=== PATIENT | male | born 1990 | race Caucasian/White ===

== ENCOUNTER 2017-01-29 19:05 | Emergency (ER) | payer OTHER ==
[~2017-01-29] VITALS: Ht 175.3 cm; Wt 117.9 kg
[~2017-01-29 19:05] MED LIST: HYDROXYZINE HCL50 M1 PO; MOTRIN 600 MG600 MG PO; NIACIN500 M7 PO; OMEPRAZOLE20 M2 PO
--- NOTE | 2017-01-29 19:19 | ED GENERAL ADULT ---
History of Present Illness General Chief Complaint: ETOH/Drug Related Complaint Stated Complaint: ?OVERDOSE Source: patient, EMS Exam Limitations: no limitations Vital Signs & Intake/Output Vital Signs & Intake/Output Vital Signs Date Time Temp Pulse Resp B/P B/P Pulse O2 O2 Flow FiO2 Mean Ox Delivery Rate 01/29 1918 98 Room Air 01/29 1907 98 18 128/71 95 Room Air Allergies Coded Allergies: NO KNOWN ALLERGIES (02/22/11) Reconcile Medications Hydroxyzine HCl 50 MG TABLET 50 MG PO Q6P PRN ANXIETY Ibuprofen (Motrin 600 MG Tab) 600 MG TABLET 1 TAB PO Q6-PRN PRN PAIN/ INFLAMMATION with food Niacin 500 MG TABLET 500 MG PO WITH MEALS heart heatlh Omeprazole 20 MG CAPSULE.DR 40 MG PO DAILY AC HEARTBURN Triage Nurses Notes Reviewed? yes Onset: Abrupt Duration: minute(s): (FEW) Timing: single episode today Injury Environment: home Severity: moderate, severe Modifying Factors: Improves With: other (NARCAN). HPI: 26-year-old male with history of previous heroin abuse presents by EMS from home for chief complaint of narcotic overdose. He states he used 6 bags of heroin IV throughout the day. Patient had no intention of overdosing. He was given 4 mg of Narcan intranasally in the field. Patient arrives awake alert and oriented. He states that he relapsed 2 weeks ago. He has been clean for approximately year prior to that. Denies any other illicit drug use. Denies any suicidal or homicidal ideation. States that he is not depressed or anxious. Past History Travel History Traveled to [place] past 21 day No Medical History Any Pertinent Medical History? 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 No Review of Systems Review of Systems Constitutional: Denies: chills, fever. EENTM: Reports: no symptoms. Respiratory: Reports: no symptoms. Cardiovascular: Reports: no symptoms. GI: Denies: abdominal pain. Genitourinary: Reports: no symptoms. Musculoskeletal: Reports: no symptoms. Skin: Reports: no symptoms. Neurological/Psychological: Denies: anxiety, depressed, emotional problems. Hematologic/Endocrine: Denies: bruising, bleeding. Immunologic/Allergic: Denies: splenectomy. All Other Systems: Reviewed and Negative Physical Exam Physical Exam General Appearance: well developed/nourished, alert, awake, mild distress Head: atraumatic Eyes: Bilateral: normal appearance, PERRL, EOMI. Ears, Nose, Throat: normal pharynx, hearing grossly normal Neck: normal inspection, supple, full range of motion Respiratory: normal breath sounds, chest non-tender, no respiratory distress Cardiovascular: regular rate/rhythm Peripheral Pulses: 2+ radial (R), 2+ radial (L) Gastrointestinal: normal bowel sounds, soft, non-tender Extremities: normal inspection, normal capillary refill, normal range of motion, no edema Neurologic/Psych: awake, alert, normal gait Skin: intact, normal color, cyanosis Core Measures ACS in differential dx? No CVA/TIA Diagnosis: No Severe Sepsis Present: No Septic Shock Present: No Progress Differential Diagnoses I considered the following diagnoses in my evaluation of the patient: [HEROIN ABUSE, POLYSUBSTANCE ABUSE, DEPRESSION, ANXIETY] Plan of Care: Orders Procedure Date/time Status URINE DRUGS OF ABUSE 01/29 1931 Active PATIETN AWAKE, ALERT, ORIENTED. NS INFUSING FROM FIELD. WILL CONTINUE TO MONITOR THE PATIENT. UTOX ORDERED. 2109 PATIENT STABLE FOR DISCHARGE HOME. NO SI/HI. DOES NOT WANT TO SPEAK TO CRISIS FOR OUTPATIENT SERVICES. I WILL PROVIDE HIM WITH A LIST OF DETOX FACILITIES. (KAITLYNN QUEEN,YUDITH) Initial ED EKG: none Departure Departure Time of Disposition: 2046 Disposition: HOME OR SELF CARE Condition: Stable Clinical Impression Primary Impression: Heroin overdose Referrals: PREMA QUEEN,JOHN Carpenter (PCP/Family) Additional Instructions: FOLLOW UP WITH THE LIST OF OUTPATIENT DETOX FACILITIES. Departure Forms: Customer Survey General Discharge Information Critical Care Note Critical Care Note Critical Care Time: non-applicable
[2017-01-29 20:51] VITALS: BP 123/61
== END 2017-01-29 21:14 ==
LOC: ERH 19:05
DX: T40.601A Poisoning by unspecified narcotics, accidental (unintentional), initial encounter (principal)
CPT/HCPCS: 80307

== ENCOUNTER 2017-02-21 10:46 | Emergency (ER) | payer OTHER ==
[~2017-02-21] VITALS: Ht 177.8 cm; Wt 117.9 kg
--- NOTE | 2017-02-21 11:17 | ED GI/GU/ABDOMINAL COMPLAINT ---
History of Present Illness General Chief Complaint: Abdominal Pain/Flank Pain Stated Complaint: ABD PAIN VOMITING NEEDS NOTE FOR WORK Source: patient Exam Limitations: no limitations Vital Signs & Intake/Output Vital Signs & Intake/Output Vital Signs Date Time Temp Pulse Resp B/P B/P Pulse O2 O2 Flow FiO2 Mean Ox Delivery Rate 02/21 1318 96.6 85 18 127/64 97 Room Air 02/21 1055 96.7 102 20 122/86 98 Room Air Allergies Coded Allergies: NO KNOWN ALLERGIES (02/22/11) Reconcile Medications Buprenorphine HCl/Naloxone HCl (Suboxone 8 MG-2 MG Sl Film) 8 MG-2 MG FILM 1 STR SL DAILY WITHDRAWAL (Reported) Hydroxyzine HCl 50 MG TABLET 50 MG PO Q6P PRN ANXIETY Ondansetron (Zofran Odt) 4 MG TAB.RAPDIS 1 TAB SL TID NAUSEA Triage Note: PT TO ED C/O ABD PAIN SINCE LAST NIGHT. C/O N/V/D. STATES HE WORKS IN A [employer] "SO IF IT'S A VIRUS I NEED TO KNOW WHAT IT IS". Triage Nurses Notes Reviewed? yes HPI: 26 yo M presenting with N/V/D, Abdominal pain. Nausea with 1 episode of nonbloody nonbilious emesis this morning. Diarrhea with 3-4 episodes of loose, nonbloody, watery stools since last night. Associated intermittent crampy upper abdominal pain, moderate intensity, not postprandial. Denies fevers, chills, chest pain, shortness of breath, urinary symptoms, testicular symptoms, penile symptoms, or focal neurologic symptoms. No sick contacts, no recent travel. (LETICIA QUEEN,CHARISSA) Past History Travel History Traveled to [place] past 21 day No Medical History Any Pertinent Medical History? 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 Yes (CHARISSA KELLY MD) Review of Systems Review of Systems Constitutional: Reports: no symptoms. EENTM: Reports: no symptoms. Respiratory: Reports: no symptoms. Cardiovascular: Reports: no symptoms. GI: Reports: abdominal pain, diarrhea, nausea, vomiting. Genitourinary: Reports: no symptoms. Musculoskeletal: Reports: no symptoms. Skin: Reports: no symptoms. Neurological/Psychological: Reports: no symptoms. Hematologic/Endocrine: Reports: no symptoms. Immunologic/Allergic: Reports: no symptoms. All Other Systems: Reviewed and Negative (CHARISSA KELLY MD) Physical Exam Physical Exam General Appearance: well developed/nourished, no apparent distress, alert, awake Head: normal appearance Ears, Nose, Throat, Mouth: moist mucous membrane Neck: normal inspection, supple, full range of motion Respiratory: normal breath sounds, no respiratory distress Cardiovascular: normal peripheral pulses, tachycardia Gastrointestinal: normal bowel sounds, soft, tenderness Comments: Abdomen: Moderate tenderness palpation in epigastrium/RUQ/LUQ, negative White sign Core Measures ACS in differential dx? No Severe Sepsis Present: No Septic Shock Present: No (LETICIA QUEEN,CHARISSA) Progress Differential Diagnosis: appendicitis, biliary colic, cholecystitis, gastritis, pancreatitis, UTI/pyelo Plan of Care: Orders Procedure Date/time Status LIPASE 02/21 1135 Complete COMPREHENSIVE METABOLIC PANEL 02/21 1135 Complete CBC WITHOUT DIFFERENTIAL 02/21 1135 Complete Current Medications Sig/Mey Start time Last Medication Dose Stop Time Status Admin Morphine Sulfate 6 MG ONCE ONE 02/21 1145 CAN (Morphine) 02/21 1146 Laboratory Tests 02/21/17 1200: Anion Gap 12, Estimated GFR > 60, BUN/Creatinine Ratio 11.1, Glucose 90, Calcium 9.3, Total Bilirubin 0.5, AST 22, ALT 30, Alkaline Phosphatase 59, Total Protein 7.0, Albumin 4.1, Globulin 2.9, Albumin/Globulin Ratio 1.4, Lipase 52, CBC w Diff NO MAN DIFF REQ, RBC 4.99, MCV 92.8, MCH 31.8 H, RDW 13.3, MPV 8.4, Gran % 78.6 H, Lymphocytes % 12.5 L, Monocytes % 6.9, Eosinophils % 1.8, Basophils % 0.2, Absolute Granulocytes 5.6, Absolute Lymphocytes 0.9 L, Absolute Monocytes 0.5, Absolute Eosinophils 0.1, Absolute Basophils 0, PUBS MCHC 34.3 Physician MDM: 26 yo M presenting with N/V/D, AP. Tachycardic in low 100s, otherwise VSS, abdominal exam as above, non-peritoneal. Patient given 1 L normal saline, Zofran, morphine with complete resolution of pain and nausea. CMP, CBC, lipase unremarkable. Reexamination patient resting comfortably, abdominal pain resolved, repeat abdominal exam benign. Tympanic control of nausea, vomiting, diarrhea discussed the patient, given Rx for Zofran, encouraged to drink plenty of fluids and follow up with PMD in the next 2-3 days. Given return precautions for worsening abdominal pain, fevers, or signs of appendicitis, Discharged. (LETICIA QUEEN,CHARISSA) Initial ED EKG: none (LETICIA QUEEN,CHARISSA) Departure Departure Disposition: HOME OR SELF CARE Condition: Stable Clinical Impression Primary Impression: Nausea & vomiting Secondary Impressions: Diarrhea Referrals: PATIENT HAS NO PRIMARY CARE DR (PCP/Family) Additional Instructions: Take ibuprofen or tylenol for abdominal pain. Take zofran for nausea. Drink plenty of fluids. Follow up with your primary care physician in the next 2-3 days. Return to the ED for any new, worsening, or concerning symptoms. Departure Forms: Customer Survey General Discharge Information Prescriptions: Current Visit Scripts Ondansetron (Zofran Odt) 1 TAB SL TID #20 TAB (LETICIA QUEEN,CHARISSA) PA/PIN PUSHER Co-Sign Statement Statement: ED Attending supervision documentation- [] I saw and evaluated the patient. I have also reviewed all the pertinent lab results and diagnostic results. I agree with the findings and the plan of care as documented in the PA's/PIN PUSHER's documentation. [X] I have reviewed the ED Record and agree with the PA's/PIN PUSHER's documentation. [] Additions or exceptions (if any) to the PAs/PIN PUSHER's note and plan are summarized below: [] (CHRIS QUEEN,FERNIE Damon)
[2017-02-21] MEDS ORDERED: VYVANSE60 M1 PO (11:27)
[2017-02-21 12:10] LABS: ABSOLUTE BASOPHIL COUNT 0 /CUMM (0.0-0.2); ABSOLUTE EOSINOPHIL COUNT 0.1 /CUMM (0.0-0.7); ABSOLUTE GRANULOCYTE CT 5.6 /CUMM (1.4-6.5); ABSOLUTE LYMPH COUNT 0.9 /CUMM (1.2-3.4); ABSOLUTE MONOCYTE COUNT 0.5 /CUMM (0.10-0.60); BASOPHIL % 0.2 % (0.0-2.0); EOSINOPHIL % 1.8 % (0-5); GRANULOCYTE % 78.6 % (42.2-75.2); HEMATOCRIT 46.3 % (42-52); MEAN CORPUSCULAR HGB 31.8 PG (27.0-31.0); MEAN CORPUSCULAR HGB CONC 34.3 G/DL (33.0-37.0); MEAN CORPUSCULAR VOLUME 92.8 FL (80.0-94.0); MEAN PLATELET VOLUME 8.4 FL (7.4-10.4); PLATELET COUNT 179 /CUMM (130-400); RBC DISTRIBUTION WIDTH 13.3 % (11.5-14.5); RED BLOOD CELL CT 4.99 /CUMM (4.70-6.10); WHITE BLOOD CELL COUNT 7.1 /CUMM (4.8-10.8)
[2017-02-21] MEDS ORDERED: SUBOXONE 8 MG-1 EACH SL (12:20)
[2017-02-21] MEDS ORDERED: ZOFRAN ODT4 M1 SL (13:14)
[2017-02-21 13:18] VITALS: BP 127/64
== END 2017-02-21 13:26 ==
LOC: ERH 10:46
PROVIDERS: Student in an Organized Health Care Education/Training Program
DX: R11.2 Nausea with vomiting, unspecified (principal); R19.7 Diarrhea, unspecified
CPT/HCPCS: 96361; 96374

== ENCOUNTER 2017-03-20 03:03 | Inpatient (IN) | payer OTHER ==
[~2017-03-20] VITALS: Ht 177.8 cm; Wt 117.9 kg
[~2017-03-20 03:03] MED LIST changes: +SUBOXONE 8 MG-1 EACH SL; +VYVANSE60 M1 PO; +ZOFRAN ODT4 M1 SL
--- NOTE | 2017-03-20 03:33 | ED AMS/SEIZURE/WEAK/DIZZY ---
See Addendum History of Present Illness General Chief Complaint: ETOH/Drug Related Complaint Stated Complaint: BIBA UNRESPONSIVE S/P OVERDOSE Source: patient Exam Limitations: no limitations Vital Signs & Intake/Output Vital Signs & Intake/Output Vital Signs Date Time Temp Pulse Resp B/P B/P Pulse O2 O2 Flow FiO2 Mean Ox Delivery Rate 03/20 1022 97.1 76 20 123/66 98 Nasal 2.0L Cannula 03/20 0909 96.5 83 16 114/62 86 Room Air Room Air 03/20 0721 97.5 78 20 106/58 100 Nasal 2.0L Cannula 03/20 0628 96.0 75 20 112/79 98 Nasal 2.0L Cannula 03/20 0320 92 Nasal 2.0L Cannula 03/20 0316 102 18 130/76 90 Room Air Allergies Coded Allergies: NO KNOWN ALLERGIES (02/22/11) Reconcile Medications Buprenorphine HCl/Naloxone HCl (Suboxone 8 MG-2 MG Sl Film) 8 MG-2 MG FILM 1 STR SL DAILY WITHDRAWAL (Reported) Hydroxyzine HCl 50 MG TABLET 50 MG PO Q6P PRN ANXIETY Naloxone HCl (Narcan) 4 MG/ACTUATION SPRAY 1 SPRAY IN X1 PRN OVERDOSE Ondansetron (Zofran Odt) 4 MG TAB.RAPDIS 1 TAB SL TID NAUSEA Triage Note: TRIAGE: JUDITH FROM HOME S/P HEROIN OVERDOSE, FOUND UNRESPONSIVE/ APNEC. PATIENT MEDICATED W/ 2MG IN NARCAN AND 0.4MG NARCAN IV IN FIELD W/ RELIEF. REGULAR RESPIRATIONS NOTED ON ARRIVAL, DROWSY THOUGH ALERT. PATIENT REPORTS USING 4 BAGS HEROIN IV, "TRYING SO HARD TO GET CLEAN." MD EVALUATING PATIENT ON ARRIVAL. Triage Nurses Notes Reviewed? yes Onset: Abrupt Duration: minute(s): Timing: single episode today Injury Environment: home Severity: moderate, severe Modifying Factors: Improves With: medication. Associated Symptoms: somnolence, hypopnea HPI: 26-year-old gentleman presents via ambulance after suspected drug overdose. Per the medics, they were called to his home by his girlfriend. He was found be in his room with agonal respirations and minimal responsiveness. He received points for intranasal Narcan followed by 2 mg of Narcan IM. He revived immediately. Upon arrival, he states that he injected between 4 and 6 bags of heroin prior to becoming unconscious. He denies suicidality, homicidality, hallucinations. He states that he is trying to, "get clean." He is otherwise well. (SUDHEER QUEEN,EVITA Riojas) Past History Travel History Traveled to [place] past 21 day No Medical History Any Pertinent Medical History? 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 No (EVITA ROSENTHAL MD) Review of Systems Review of Systems Constitutional: Reports: no symptoms. EENTM: Reports: no symptoms. Respiratory: Reports: no symptoms. Cardiovascular: Reports: no symptoms. GI: Reports: no symptoms. Genitourinary: Reports: no symptoms. Musculoskeletal: Reports: no symptoms. Skin: Reports: no symptoms. Neurological/Psychological: Reports: no symptoms. Hematologic/Endocrine: Reports: no symptoms. Immunologic/Allergic: Reports: no symptoms. All Other Systems: Reviewed and Negative (EVITA ROSENTHAL MD) Physical Exam Physical Exam General Appearance: well developed/nourished, mild distress Head: atraumatic, normal appearance Eyes: Bilateral: normal appearance, PERRL, EOMI. Ears, Nose, Throat: normal pharynx, normal ENT inspection Neck: normal inspection, supple, full range of motion Respiratory: normal breath sounds, chest non-tender, no respiratory distress, quiet respiration, lungs clear Cardiovascular: regular rate/rhythm Gastrointestinal: normal bowel sounds, soft, non-tender, no organomegaly Back: normal inspection, normal range of motion Extremities: normal range of motion Neurologic/Psych: no motor/sensory deficits, awake, alert, oriented x 3 Skin: intact, normal color, warm/dry Core Measures ACS in differential dx? No CVA/TIA Diagnosis: No Severe Sepsis Present: No Septic Shock Present: No (EVITA ROSENTHAL MD) Progress Differential Diagnosis: alcohol intoxication, dehydration, drug intoxication, hypoglycemia, drug overdose vs other. Plan of Care: Orders Procedure Date/time Status Regular Diet 03/20 B Active AEROSOL (GEN) 03/20 831 Complete URINE DRUG SCREEN FOR ER ONLY 03/20 333 Complete TROPONIN LEVEL 03/20 333 Complete ETHANOL 03/20 333 Complete COMPREHENSIVE METABOLIC PANEL 03/20 333 Complete CBC WITHOUT DIFFERENTIAL 03/20 333 Complete EKG 03/20 333 Active Laboratory Tests 03/20/17 0745: Urine Opiates Screen > 4000.00 H, Methadone Screen < 40, Barbiturate Screen < 60, Ur Phencyclidine Scrn < 6.00, Amphetamines Screen 193, U Benzodiazepines Scrn < 85, Urine Cocaine Screen < 50, Urine Cannabis Screen < 5.00 03/20/17 0340: Anion Gap 14, Estimated GFR > 60, BUN/Creatinine Ratio 21.3, Glucose 164 H, Calcium 9.2, Total Bilirubin 0.4, AST 32, ALT 44, Alkaline Phosphatase 51, Troponin I < 0.01, Total Protein 6.8, Albumin 4.0, Globulin 2.8, Albumin/ Globulin Ratio 1.4, CBC w Diff NO MAN DIFF REQ, RBC 4.26 L, MCV 92.8, MCH 31.5 H, RDW 13.1, MPV 8.3, Gran % 81.3 H, Lymphocytes % 11.1 L, Monocytes % 5.0, Eosinophils % 2.3, Basophils % 0.3, Absolute Granulocytes 10.3 H, Absolute Lymphocytes 1.4, Absolute Monocytes 0.6, Absolute Eosinophils 0.3, Absolute Basophils 0, PUBS MCHC 33.9, Serum Alcohol < 10.0 Initial ED EKG: normal axis, normal intervals, normal p-waves, normal QRS complex, normal sinus rhythm Hand-Off Endorsed To: POPPY WASHINGTON DO Endorsed Time: 0700 Pending: labs, other (sobriety) (SUDHEER QUEEN,EVITA Riojas) Departure Departure Disposition: STILL A PATIENT Condition: Stable Clinical Impression Primary Impression: Heroin overdose Referrals: PATIENT HAS NO PRIMARY CARE DR (PCP/Family) Departure Forms: Customer Survey General Discharge Information Prescriptions: Current Visit Scripts Naloxone HCl (Narcan) 1 SPRAY IN X1 PRN OVERDOSE #2 KIT Ref 1 Comments comfortable in ED... awaiting urine drug screen and sobriety. (SUDHEER QUEEN,EVITA Riojas) Departure Comments 03/20/17 11:15 am The patient was signed out to me by Dr. Rosenthal. He is pending reevaluation. (PADMINI NAVARRO,POPPY Boss)
[2017-03-20] MEDS ORDERED: NARCAN4 MG IN (03:38)
[2017-03-20 03:56] LABS: ABSOLUTE BASOPHIL COUNT 0 /CUMM (0.0-0.2); ABSOLUTE EOSINOPHIL COUNT 0.3 /CUMM (0.0-0.7); ABSOLUTE GRANULOCYTE CT 10.3 /CUMM (1.4-6.5); ABSOLUTE LYMPH COUNT 1.4 /CUMM (1.2-3.4); ABSOLUTE MONOCYTE COUNT 0.6 /CUMM (0.10-0.60); BASOPHIL % 0.3 % (0.0-2.0); EOSINOPHIL % 2.3 % (0-5); GRANULOCYTE % 81.3 % (42.2-75.2); HEMATOCRIT 39.6 % (42-52); MEAN CORPUSCULAR HGB 31.5 PG (27.0-31.0); MEAN CORPUSCULAR HGB CONC 33.9 G/DL (33.0-37.0); MEAN CORPUSCULAR VOLUME 92.8 FL (80.0-94.0); MEAN PLATELET VOLUME 8.3 FL (7.4-10.4); PLATELET COUNT 250 /CUMM (130-400); RBC DISTRIBUTION WIDTH 13.1 % (11.5-14.5); RED BLOOD CELL CT 4.26 /CUMM (4.70-6.10); WHITE BLOOD CELL COUNT 12.7 /CUMM (4.8-10.8)
--- NOTE | 2017-03-20 05:58 | RADIOLOGY REPORT ---
EXAMINATION: XR PORTABLE CHEST CLINICAL INFORMATION: Hypoxia. COMPARISON: 06/14/2016 TECHNIQUE: Portable frontal view of the chest was obtained. FINDINGS: Cardiac leads overlie the chest. The lungs are well expanded. There is no focal consolidation, edema, or effusion. No pneumothorax. The cardiomediastinal silhouette is within normal limits. No acute osseous abnormality. IMPRESSION: No acute pulmonary findings.
--- NOTE | 2017-03-20 13:28 | ED PSYCHIATRIST/APRN CONSULT ---
Psychiatrist/LINING STUFFER ED Consult Assessment and Plan: 26-year-old single male brought in unresponsive status post opiate overdose. Capacity eval requested by Dr. Hamm patient healthcare decision- making to leave AMA with current respiratory compromise and risk for additional compromise. Of note patient agrees to stay for respiratory monitoring prior to exam. Subjective: "If I leave I could ." Objective: Mental Status Exam Presentation/Appearance: Cooperative with evaluation. Hospital gar. Orientation: x4 Sensorium: Awake and alert Eye contact: Appropriate Affect: Somewhat blunted Mood: Euthymic Thought Content: - Denies SI/HI, AH/VH, PI. States and also believes they will not kill themselves. Thought Process: Linear Associations: Appropriate Speech: Normal tone and rate Judgment: Fair Insight: Fair Cognition: Memory: Grossly intact Attention/Concentration: Grossly intact Fund of Knowledge: Adequate MMSE: Patient's scores 29 out of 30 which indicates no cognitive impairment at this time Capacity assessment Patient demonstrates an ability to communicate a choice, expressing the wish to stay in hospital for respiratory monitoring. He displays the ability to understand the relevant information, appreciate the situation and it's consequences, and reason about treatment options. Assessment: This patient's currently satisfies capacity and his cognition is intact as shown in Mini-Mental status exam. Is not currently threat to self or others but may be at higher risk for relapse. Plan: - Patient does currently agree to stay and has capacity to make that decision. If patient mental status appears to be altered whether due to hypoxia or otherwise it may be prudent to reevaluate capacity which any provider can do - Please see crisis eval for full history, risk assessment and psychiatric exam - It patient is to be admitted please initiate social work referral for substance abuse disposition planning otherwise it may be prudent to reevaluate capacity which any provider can do - Please see crisis eval for full history, risk assessment and psychiatric exam - It patient is to be admitted please initiate social work referral for substance abuse disposition planning
--- NOTE | 2017-03-20 13:35 | CT SCAN REPORT ---
EXAMINATION: CT ANGIOGRAM OF THE CHEST WITH AND WITHOUT CONTRAST (CT PULMONARY ANGIOGRAM FOR PE) CLINICAL INFORMATION: Hypoxia. COMPARISON: None TECHNIQUE: Prior to contrast administration, noncontrast localization images were obtained. Subsequently, multidetector volumetric imaging was performed from the thoracic inlet to below the diaphragms following the administration of 95 mL Omnipaque 350 intravenous contrast. No contrast reaction reported. Sagittal, coronal, and MIP oblique sagittal reformatted images were obtained on the CT workstation, uploaded to PACS, and reviewed. Total exam dose-length product 517 mGy-cm. FINDINGS: QUALITY OF STUDY/CONTRAST BOLUS: Satisfactory PULMONARY ARTERIES: Pulmonary arterial tree is well-opacified without evidence of filling defects to suggest pulmonary emboli. THORACIC AORTA: Unremarkable. No aneurysm or dissection. No evidence of a penetrating ulcer or atherosclerotic changes. LUNG: There is fairly diffuse bilateral lower lobe, under 1 cm indistinct centrilobular groundglass densities, indeterminate in etiology, likely an infectious or inflammatory, possibly hypersensitive. The findings may represent early findings of aspiration or hypersensitivity. Followup and pulmonary consultation should be considered. No consolidation is seen. No suspicious appearing pulmonary nodules to suggest a primary malignancy or metastatic disease, although this diagnosis is not completely included, given the appearance in the lower lobes. PLEURA: No pleural effusion or pneumothorax. MEDIASTINUM: Unremarkable. CHEST WALL/AXILLA: Multiple small axillary nodes without pathologically enlarged nodes. No suspicious appearing chest wall masses. OSSEOUS STRUCTURES: Unremarkable. UPPER ABDOMEN: Unremarkable. IMPRESSION: 1. No evidence of pulmonary embolism. 2. Indeterminate subcentimeter groundglass opacities, most notably in the lower lobes, will need followup along with clinical correlation, as noted above. VTE: Negative exam for pulmonary embolism.
--- NOTE | 2017-03-20 14:07 | ED PSYCH CRISIS CONSULTATION ---
Crisis Consult Basic Assessment Date of Consult: 03/20/17 Responsible Person/Accompanied By: Self Insurance Authorization: Insurance #1: Insurance name: [employer] Phone number: Policy number: [id number] Group number: [id number] Authorization number: ED Provider: Patient's ED Provider: EVITA WILLARD MD Primary Care Physician: Patient's PCP: PATIENT HAS NO PRIMARY CARE DR PCP's Phone Number: Current Psychiatrist: None Chief Complaint: ETOH/Drug Related Complaint Patient's Quote: I really want to get clean Present Illness: 26 M BIBA 03/20/17 at 0309 after being found unresponsive at home 2/2 heroin OD. The patient responded to Narcan in the field. He has had 3 previous overdoses, accidental in nature. We were asked to see him because he is wanting to leave the hospital, despite ongoing hypoxia. Dr. Hamm, ED physician, fears that if the patient leaves AMA, he is at extreme risk of developing ARDS, and subsequently dying. I saw the patient with Beulah Rojas APRN, from psychiatry consult service. Please see his note regarding capacity evaluation for making the decision to leave the hospital. I did hear the patient verbalized understanding of the risks of leaving before treatment is finished, as well as the benefits of staying in the hospital. He is now agreeing to stay in the hospital for further evaluation, and will be admitted medically. 03/20/17 @ 1138: 110/56, 82HR, 98.0, 20RR, 87% RA. During our interview, SpO2 was noted to fluctuate between 73% and 91%; the patient was not in any respiratory distress. WBC 12.7, potassium 3.1, UTox showed opiates/morphine > 4000. MSE: Alert, but occasional periods of sleepiness, he is oriented and cooperative. Denies AH; denies VH; he presents no adilson delusions. He denies SI/ HI, and denies any history of suicide attempts, although he admits that he has had accidental ods in the past. The patient is agreeing to stay in the hospital, and will be admitted to medicine. The case was discussed with Dr. Syed, covering psychiatrist, who agrees with the plan, and suggests that psychiatry consult service provide offers of outpatient services, such as IOP. The patient reports he will be able to attend an IOP in the late afternoon. He would like to get on a Suboxone program, and also be treated for his anxiety. The patient is currently taking Vyvanse [address] Sorensen for ADHD. Collateral: The patient's father, Jem, was contacted after the interview by Jayde Richards LCSW, who reports that this overdose was a suicide attempt, which the patient had denied. Beulah Adame APRN, Dr. Syed, Dr. Hamm made aware of this new information. Dr. Hamm will order a 1:1 sitter. Please see the collateral note. Patient's Address: [address] [place] [address] Other Phone Number: Who Do You Live With? Family Family/Informants Interviewed: Jem, father, called. Allergies - Coded Allergies: NO KNOWN ALLERGIES (02/22/11) Current Medications - Scheduled Medications Buprenorphine HCl/Naloxone HCl (Suboxone 8 MG-2 MG Sl Film) 8 MG-2 MG FILM 1 STR SL DAILY WITHDRAWAL (Reported) Entered as Reported by KATRINA RIDDLE on 02/21/17 1220 Ondansetron (Zofran Odt) 4 MG TAB.RAPDIS 1 TAB SL TID NAUSEA #20 TAB Prescribed by CHARISSA KELLY MD on 02/21/17 Scheduled PRN Medications Hydroxyzine HCl 50 MG TABLET 50 MG PO Q6P PRN ANXIETY 28 Days Prescribed by KWASI TRENT on 06/19/16 Naloxone HCl (Narcan) 4 MG/ACTUATION SPRAY 1 SPRAY IN X1 PRN OVERDOSE #2 KIT Prescribed by SUDHEER QUEEN,SALINAS on 03/20/17 Laboratory Results: Laboratory Tests 03/20/17 0745: Urine Opiates Screen > 4000.00 H, Methadone Screen < 40, Barbiturate Screen < 60, Ur Phencyclidine Scrn < 6.00, Amphetamines Screen 193, U Benzodiazepines Scrn < 85, Urine Cocaine Screen < 50, Urine Cannabis Screen < 5.00 03/20/17 0340: Anion Gap 14, Estimated GFR > 60, BUN/Creatinine Ratio 21.3, Glucose 164 H, Calcium 9.2, Total Bilirubin 0.4, AST 32, ALT 44, Alkaline Phosphatase 51, Troponin I < 0.01, Total Protein 6.8, Albumin 4.0, Globulin 2.8, Albumin/ Globulin Ratio 1.4, CBC w Diff NO MAN DIFF REQ, RBC 4.26 L, MCV 92.8, MCH 31.5 H, RDW 13.1, MPV 8.3, Gran % 81.3 H, Lymphocytes % 11.1 L, Monocytes % 5.0, Eosinophils % 2.3, Basophils % 0.3, Absolute Granulocytes 10.3 H, Absolute Lymphocytes 1.4, Absolute Monocytes 0.6, Absolute Eosinophils 0.3, Absolute Basophils 0, PUBS MCHC 33.9, Serum Alcohol < 10.0 Past History Past Medical History Neurological: NONE EENT: NONE Cardiovascular: NONE Respiratory: NONE Gastrointestinal: NONE Hepatic: NONE Renal: NONE Musculoskeletal: chronic back pain, chronic skin rash Psychiatric: anxiety, HEROIN ABUSE Endocrine: NONE Blood Disorders: NONE Cancer(s): NONE M[employer] 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 Sorensen Reason for Treatment ADHD, opiate use disorder Dates of Treatment Currently in treatment Response to Treatment Unknown Diagnosis by History: Unspecified Depressive Disorder Substance Use/Abuse History Drug Use/Abuse Substances Used/Abused Yes Substance Used/Abused Heroin First Use Not assessed Last Used [employer] How much used/taken 4 bags How often daily Route of use Injected Substance Abuse Treatment Substance Abuse Treatment Past Substance Abuse [place] No (Unknown) Current Mental Status Mental Status Orientation: Person, Place, Situation Affect: Anxious, Depressed Speech: Soft Neuro-vegetative: Anhedonia, Energy Increased, Sleep Disturbance Appearance Appearance- Dress/Hygiene: Hospital garb Behaviors Thought Process: Logical/Rational, Minimizes risk of self-harm Thought Content: WNL Memory: WNL Insight: Poor SI/HI Risk Assessment Past Suicidal Ideation/Attempts No (Denies) Current Suicidal Ideation/Att No (Denies) Past Homicidal Ideation/Att: No Current Homicidal Ideation/Attempts No Danger To: Self Gravely Disabled: Lack of Insight, Poor Judgment Risk Factors: access to lethal means, high anxiety/distress, substance abuse, isolate/no social support, male, limited support Lethality Ratin PTSD Checklist PTSD Done? patient declined ED Management Sitter: Yes Restraints: No DSM5/PS Stressors/Medical Prob Diagnosis' (DSM 5, Stressors, Medical): F32.9 Depression NOS F11.20 Opiate use disorder Current GAF: 21 Comments: Collateral from father about probable suicide attempt learned after discussion with Dr. Syed. Departure Disposition Psych Medical Clearance Date: 03/20/17 Medically Cleared at: 1315 Time Started: 1315 Time Ended: 1345 Psychiatrist Consulted: Yahaira QUEEN,Edward Date Disposition Established: 03/20/17 Time Disposition Established: 1415 Plan for Disposition - Modality: Re-evaluate for suidicidality before D/C. Family reports suicide attempt Facility: [facility] Rationale for Disposition: Pt's father reports this was a suicde attempt. Type of IP Admission: Voluntary (Voluntary medical admission) Referrals PATIENT HAS NO PRIMARY CARE DR (PCP/Family)
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
--- NOTE | 2017-03-20 15:10 | History & Physical ---
NIC MATT MD 03/20/17 1509: General Information and HPI MD Statement: I have seen and personally examined DAX NEGRETE and documented this H&P. The patient is a 26 year old M who presented with a patient stated chief complaint of heroin overdose. Source of Information: patient, old records Exam Limitations: no limitations History of Present Illness: Mr. Negrete is a 26 year old male with PMH heroin use with three previous heroin overdoses, chronic forearm skin rash, ADHD and anxiety who presented to [place] after being found unresponsive at home. According to EMS, the patient was found unresponsive around 10:15 PM last night by his girlfriend who noticed agonal breathing. The patient had previously done 4 bags of heroin in the morning and 4 bags around 10 PM, after which he does not remember the sequence of events. On EMS arrival, patient was given 2 mg intranasal narcan followed by 0.4 mg IV narcan which revived him. Review of systems is notable for 3 day history of cough, slight mucous production, fever, chills, cold sweats and headache for three days. He reports a physician told him he had bronchitis and should be given antibiotics, though this did not happen. He also endorsed a slightly "delirious" feeling due to "low oxygen". Patient was previously admitted in June 2016 for unresponsiveness secondary to heroin overdose with noted demand ischemia. Prior to this, he had an admission at [facility] due to similar circumstances. He began using heroin 3 years ago around the time of his mother's and has attempted to quit several times. He was recently clean for 1 month but relapsed yesterday morning. Social history is also significant for tobacco use for several years with 1 ppd use. He occasionally drinks alcohol. He is employed at a local [employer]. He lives with his girlfriend and child. Allergies/Medications Allergies: Coded Allergies: NO KNOWN ALLERGIES (02/22/11) Home Med list Buprenorphine HCl/Naloxone HCl (Suboxone 8 MG-2 MG Sl Film) 8 MG-2 MG FILM 1 STR SL DAILY WITHDRAWAL (Reported) Hydroxyzine HCl 50 MG TABLET 50 MG PO Q6P PRN ANXIETY Naloxone HCl (Narcan) 4 MG/ACTUATION SPRAY 1 SPRAY IN X1 PRN OVERDOSE Ondansetron (Zofran Odt) 4 MG TAB.RAPDIS 1 TAB SL TID NAUSEA Compliance With Home Meds: GOOD Past History Travel History Traveled to [place] past 21 day No Medical History Neurological: NONE EENT: NONE Cardiovascular: NONE Respiratory: NONE Gastrointestinal: NONE Hepatic: NONE Renal: NONE Musculoskeletal: chronic back pain, chronic skin rash Psychiatric: anxiety, HEROIN ABUSE Endocrine: NONE Blood Disorders: NONE Cancer(s): NONE PURCHASER/Reproductive: NONE History of MRSA: No History of VRE: No History of CDIFF: No Isolation History: Standard Tetanus Vaccine: Surgical History Surgical History: non-contributory Past Family/Social History Family History Relations & Conditions if any Relation not specified for: *No pertinent family history Psychosocial History Where do you live? Home Who Do You Live With? child, Partner Services at Home: None Primary Language: Slovak Smoking Status: Current Everyday Smoker ETOH Use: occasional use Illicit Drug Use: heroin Functional Ability ADLs Independent: dressing, eating, toileting, bathing. Ambulation: independent IADLs Independent: shopping, housework, finances, food prep, telephone, transportation , medication admin. Sexual History Sexually Active Yes Employment History Employment Employed Profession/Employer [employer] Review of Systems Review of Systems Constitutional: Reports: see HPI, chills, malaise. EENTM: Reports: nasal congestion. Denies: visual changes, hearing changes. Cardiovascular: Denies: chest pain, palpitations, syncope. Respiratory: Reports: cough, short of breath, sputum production. Denies: wheezing. GI: Denies: abdominal pain, nausea, vomiting. Genitourinary: Denies: dysuria, hematuria. Musculoskeletal: Denies: back pain, joint pain. Skin: Reports: lesions (Right forearm burn from work), rash (Chronic, bilateral UE's). Neurological/Psychological: Denies: anxiety, confusion, emotional problems, headache, numbness, paresthesia. Hematologic/Endocrine: Denies: bruising, bleeding. Immunologic/Allergic: Denies: splenectomy. All Other Systems: Reviewed and Negative Exam & Diagnostic Data Last 24 Hrs of Vital Signs/I&O Vital Signs Date Time Temp Pulse Resp B/P B/P Pulse O2 O2 Flow FiO2 Mean Ox Delivery Rate 03/20 1541 98.6 78 19 110/54 95 Room Air 03/20 1412 98.2 86 20 118/72 96 Room Air 03/20 1138 98.0 82 20 110/56 87 Room Air 03/20 1022 97.1 76 20 123/66 98 Nasal 2.0L Cannula 03/20 0909 96.5 83 16 114/62 86 Room Air Room Air 03/20 0825 95 08 0721 97.5 78 20 106/58 100 Nasal 2.0L Cannula 03/20 0628 96.0 75 20 112/79 98 Nasal 2.0L Cannula 03/20 0320 92 Nasal 2.0L Cannula 03/20 0316 102 18 130/76 90 Room Air Physical Exam General Appearance Oriented X3, Cooperative, No Acute Distress, Slightly lethargic, occasionally falling asleep during interview Skin Left antecubital track sanders, right forearm burn (occurred at work) Skin Temp/Moisture Exam: Warm/Dry HEENT Atraumatic, PERRLA, EOMI, Slightly dry mucous membranes Neck Supple, No JVD Lymphatic Cervical nl Cardiovascular Regular Rate, Normal S1, Normal S2 Lungs Basal rhonchi bilaterally Abdomen Normal Bowel Sounds, Soft, No Tenderness, No Masses Neurological Normal Speech, Strength at 5/5 X4 Ext, Normal Tone Extremities No Clubbing, No Cyanosis, No Edema, No Tenderness/Swelling Vascular Pulses Symmetrical Last 24 Hrs of Labs/Neto: Laboratory Tests 03/20/17 0745: Urine Opiates Screen > 4000.00 H, Methadone Screen < 40, Barbiturate Screen < 60, Ur Phencyclidine Scrn < 6.00, Amphetamines Screen 193, U Benzodiazepines Scrn < 85, Urine Cocaine Screen < 50, Urine Cannabis Screen < 5.00 03/20/17 0340: Anion Gap 14, Estimated GFR > 60, BUN/Creatinine Ratio 21.3, Glucose 164 H, Calcium 9.2, Total Bilirubin 0.4, AST 32, ALT 44, Alkaline Phosphatase 51, Creatine Kinase 272 H, Troponin I < 0.01, Total Protein 6.8, Albumin 4.0, Globulin 2.8, Albumin/Globulin Ratio 1.4, CBC w Diff NO MAN DIFF REQ, RBC 4.26 L, MCV 92.8, MCH 31.5 H, RDW 13.1, MPV 8.3, Gran % 81.3 H, Lymphocytes % 11.1 L, Monocytes % 5.0, Eosinophils % 2.3, Basophils % 0.3, Absolute Granulocytes 10.3 H, Absolute Lymphocytes 1.4, Absolute Monocytes 0.6, Absolute Eosinophils 0.3, Absolute Basophils 0, PUBS MCHC 33.9, Serum Alcohol < 10.0 Diagnostic Data EKG Results NSR, HR 99 bpm, 1st degree AV block with OK 216 CXR Results IMPRESSION: No acute pulmonary findings. Other Results Chest CTA: IMPRESSION: 1. No evidence of pulmonary embolism. 2. Indeterminate subcentimeter groundglass opacities, most notably in the lower lobes, will need followup along with clinical correlation, as noted above. VTE: Negative exam for pulmonary embolism. Assessment/Plan Assessment: Mr. Negrete is a 26 year old male with history of heroin use, three heroin overdoses, chronic back pain, ADHD and anxiety who presents after being found unresponsive by his girlfriend at 10 PM. Dax has been intermittently using heroin for three years but has been clean for the last one month; he relapsed yesterday morning, using 4 bags in the AM and 4 bags around 10 PM. He subsequently was noted to have agonal respirations and be unresponsive at 10:15 PM which time EMS were called. He received both intranasal and IV narcan in the field with good response. In the ED: Vital signs showed T 96.0, HR 102, RR 18, BP 130/76 and O2 saturation 86-100% on room air transitioned to 2 L NC. Labs were significant for: WBC 12.7 with 81% granulocytes, H&H 13.4/39.6, Plt 250, K 3.1, BUN/cre 17/0.8, Glu 164, CK 272, trop <0.01, and UTox significant for opiates >4,000. CXR was done and showed no acute pulmonary findings. CTA showed no PE and showed indeterminate subcentimeter groundglass opacities in the lower lobes. EKG showed NSR with first degree AV block, HR 99, OK 216. 1. Unresponsiveness secondary to heroin overdose * Patient s/p narcan in the field with good response * UTox positive for opiates >4000 * Narcan 0.4 mg IV Q5 minutes x 3 doses for respiratory depression or SAS <2 * Continuous observation monitor * Psych and social work consults placed, follow up recommendations * Per psych recommendations, will initiate: clonidine 0.1 mg PO Q8P for opiate withdrawl sxs, baclofen 10 mg PO Q6P for muscle cramps, bentyl 20 mg PO Q6 for GI cramps, hydroxyzine 50 mg PO Q6P for anxiety and ibuprofen 600 mg Q6P pain * Continue CIWA scoring * Cannot leave AMA for now 2. Acute hypoxic respiratory failure * Patient noted to desaturate to 86% on room air, possibly secondary to decreased respiratory drive * Improving on O2 via NC, continue supplementation to keep O2 sat >92% * TRC nebs * As initial CT showed ground glass opacities, will consider follow up imaging * Watch off antibiotics for now 3. Tobacco abuse * Tobacco cessation counseling provided * Nicotine patch daily 4. Hypokalemia * K 3.1 on admission * 60 meq KDur repleted now * Follow up repeat BEP in AM 5. Leukocytosis * Likely reactive in the setting of acute stress from overdose * Monitor for fevers, worsening leukocytosis * Repeat CBC in AM * If no improvement or clinically appears worse, consider blood cultures and treatment for possible bronchitis or ?aspiration FULL CODE DVTP: SC Lovenox Regular diet Mild to moderate pain pathway As Ranked By This Provider Problem List: 1. Heroin overdose Core Measures/Miscellaneous Acute Coronary Syndrome ACS Diagnosis: No Cerebrovascular Accident CVA/TIA Diagnosis: No Congestive Heart Failure CHF Diagnosis: No VTE (View Protocol) VTE Risk Factors: Acute medical illness, Smoking No [facility] VTE prophylaxis d/t: No contraindications No VTE Pharm Prophylaxis d/t: No contraindications VTE Diagnosis: No VTE Type: NONE VTE Confirmed by (Test): NONE Sepsis (View Protocol) Severe Sepsis Present: No Septic Shock Septic Shock Present: No Miscellaneous Documentation Attending Case Discussed With: LUIS NAM MD Primary Care Physician: PATIENT HAS NO PRIMARY CARE DR Patient sees these Specialists None. Level of Patient Care: General Medicine LUIS NAM MD 03/20/17 1559: Attending MD Review Statement Attending Statement Attending MD Statement: examined this patient, discuss w/resident/PA/RETIREMENT SPECIALIST, agreed w/resident/PA/RETIREMENT SPECIALIST, reviewed EMR data (avail), discussed with nursing, reviewed images, amended to note Attending Assessment/Plan: 26-year-old male with past medical history significant for heroine use, chronic cigarette smoker, ADHD who presented after he was found unresponsive in his apartment. Apparently patient had used 4 bags of heroine and he used IV. Patient claims that he was sober for last 4 weeks and then there were a few triggers that made him use the heroine again. Prior to that he had used it off and on but in between those timing he had been sober for a number of months. He denies any suicidal ideation. He currently denies any abdominal pain, nausea, vomiting, sweating. In the emergency room he did require Narcan. He had been seen by psychiatry. He does have one-to-one sitter. Patient denies any other drug use or use of alcohol. Vital Signs Date Time Temp Pulse Resp B/P B/P Pulse O2 O2 Flow FiO2 Mean Ox Delivery Rate 03/20 1541 98.6 78 19 110/54 95 Room Air 03/20 1412 98.2 86 20 118/72 96 Room Air 03/20 1138 98.0 82 20 110/56 87 Room Air 03/20 1022 97.1 76 20 123/66 98 Nasal 2.0L Cannula 03/20 0909 96.5 83 16 114/62 86 Room Air Room Air 03/20 0825 95 08 0721 97.5 78 20 106/58 100 Nasal 2.0L Cannula 03/20 0628 96.0 75 20 112/79 98 Nasal 2.0L Cannula 03/20 0320 92 Nasal 2.0L Cannula 03/20 0316 102 18 130/76 90 Room Air on exam; aox3, nad. cv; s1,s2, rrr resp; sacttered wheeze abd; soft, nt, bs+ ext; no edema. Laboratory Tests 03/20 03/20 0745 0340 Chemistry Sodium (137 - 145 mmol/L) 141 Potassium (3.5 - 5.1 mmol/L) 3.1 L Chloride (98 - 107 mmol/L) 100 Carbon Dioxide (22 - 30 mmol/L) 27 Anion Gap (5 - 16) 14 BUN (9 - 20 mg/dL) 17 Creatinine (0.7 - 1.2 mg/dL) 0.8 Estimated GFR (>60 ml/min) > 60 BUN/Creatinine Ratio (7 - 25 %) 21.3 Glucose (65 - 99 mg/dL) 164 H Calcium (8.4 - 10.2 mg/dL) 9.2 Total Bilirubin (0.2 - 1.3 mg/dL) 0.4 AST (17 - 59 U/L) 32 ALT (21 - 72 U/L) 44 Alkaline Phosphatase (< 127 U/L) 51 Creatine Kinase (55 - 170 U/L) 272 H Troponin I (<0.11 ng/ml) < 0.01 Total Protein (6.3 - 8.2 g/dL) 6.8 Albumin (3.5 - 5.0 g/dL) 4.0 Globulin (1.9 - 4.2 gm/dL) 2.8 Albumin/Globulin Ratio (1.1 - 2.2 %) 1.4 Hematology CBC w Diff NO MAN DIFF REQ WBC (4.8 - 10.8 /CUMM) 12.7 H RBC (4.70 - 6.10 /CUMM) 4.26 L Hgb (14.0 - 18.0 G/DL) 13.4 L Hct (42 - 52 %) 39.6 L MCV (80.0 - 94.0 FL) 92.8 MCH (27.0 - 31.0 PG) 31.5 H RDW (11.5 - 14.5 %) 13.1 Plt Count (130 - 400 /CUMM) 250 MPV (7.4 - 10.4 FL) 8.3 Gran % (42.2 - 75.2 %) 81.3 H Lymphocytes % (20.5 - 51.1 %) 11.1 L Monocytes % (1.7 - 9.3 %) 5.0 Eosinophils % (0 - 5 %) 2.3 Basophils % (0.0 - 2.0 %) 0.3 Absolute Granulocytes (1.4 - 6.5 /CUMM) 10.3 H Absolute Lymphocytes (1.2 - 3.4 /CUMM) 1.4 Absolute Monocytes (0.10 - 0.60 /CUMM) 0.6 Absolute Eosinophils (0.0 - 0.7 /CUMM) 0.3 Absolute Basophils (0.0 - 0.2 /CUMM) 0 PUBS MCHC (33.0 - 37.0 G/DL) 33.9 Toxicology Urine Opiates Screen (>2000 NG/ML) > 4000.00 H Methadone Screen (>300 NG/ML) < 40 Barbiturate Screen (>200 NG/ML) < 60 Ur Phencyclidine Scrn (>25 NG/ML) < 6.00 Amphetamines Screen (>1000 NG/ML) 193 U Benzodiazepines Scrn (>200 NG/ML) < 85 Urine Cocaine Screen (>300 NG/ML) < 50 Urine Cannabis Screen (>50 NG/ML) < 5.00 Serum Alcohol (<10 MG/DL) < 10.0 All imaging reviewed. EKG>>> Sinus rythm with first degree Av block. A/P; 26-year-old male with history significant for opiate use, ADHD who is admitted with opiate overdose. Patient denies suicidal ideation. Denies any use of alcohol concurrently or any other drug use. Patient will be admitted to medicine. He did require Narcan in the emergency room, although he was sober for 4 weeks but he did use hefty dose of heroine so there is a good chance that he would have some withdrawal symptoms. Please discuss with psychiatry about using quick methadone taper starting at 20 mg daily versus just using symptomatically treatment including antiemetics, and a spasmodic, antihistamine for symptom control. They also discussed with psychiatry if the patient still needs one-to- one sitter. Can use breathing treatments for the respiratory issues. He should be on a nicotine patch. Is not narcotics for pain control. DVT prophylaxis: Lovenox. Full code [id number] [email or web address] 03/20/17 1653: Resident Review Statement Resident Statement: examined this patient, discussed with software intern, agreed with software intern, discussed with family, reviewed EMR data (avail), discussed with nursing , discussed with case mgmt, reviewed images, amended to note Other Findings: Dax, a 26-year-old man, was brought in to the emergency room yesterday after he was found unresponsive. Patient has a past psychiatric history of IV drug abuse with cocaine and heroine he also has a previous hospitalization due to heroine overdose in June 2016 which required ICU admission. After being sober for a while yesterday patient reportedly had "a relapse" and used for bag of IV heroine. According to patient he was found, shortly, after what unresponsive by his girlfriend who informed the EMS. In the ED he was found to be in hypoxic respiratory failure and was given multiple doses of narcan . Review of system: URI symptoms, sinus headache, cough and sputum production and shaking chills for the past couple of days. Vital signs are stable. Physical exam was unremarkable except for chronic rash on his right upper extremity and track sign on left upper extremity. 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 Pertinenet Data: CTA of the chest: No evidence of pulmonary embolism, indeterminate subcentimer ground glass opacities mostly in lower lobes. CXR: no acute pulmonary finding Urine Tox: > 4000 List of active problems 1) Opioid overdose and Hypoxic respiratory failure * Admit to general medical floor * Continue safety monitoring * Can't leave AMA * Clonidine 0.1 mg PO every 8 hours as needed, if opiate withdrawal symptoms. Hold Clonidine for blood pressure less than 90 mmHg systolic, less than 60 mmHg diastolic or pulse less than 55 BPM. * Baclofen 10 mg PO every 6 hours, as needed, for muscle cramps. * Dicyclomine (Bentyl) 20 mg PO every 6 hours, as needed, for GI cramps. * Hydroxyzine (Atarax or Vistaril) 50 mg PO every 6 hours, as needed, for anxiety. * Ibuprofen 600 mg PO every 6 hours, as needed, for pain. * Narcan in case of respiratory compromise 2) Extenssive tobacco use * TRC * Nicotine patch 3) hypokalemia- K dur Full code
--- NOTE | 2017-03-20 15:58 | Incdntl Nt Psy ---
Incidental Note Notation: Patient to be admitted to medicine for observation. Discussed case with Dr. Felipe. Plan: - Continue one-to-one sitter for now due to collateral report of suicidality. Patient has denied this to multiple clinicians and has no know hx of suicide attempt. When he experienced SI in the past he sought help and was quick to disclose to clinicians. Continue to assess. - Would not recommend methadone taper. - Recommend the following opiate detox protocol: - Clonidine 0.1 mg PO every 8 hours as needed, if opiate withdrawal symptoms. Hold Clonidine for blood pressure less than 90 mmHg systolic, less than 60 mmHg diastolic or pulse less than 55 BPM. - Baclofen 10 mg PO every 6 hours, as needed, for muscle cramps. - Dicyclomine (Bentyl) 20 mg PO every 6 hours, as needed, for GI cramps. - Hydroxyzine (Atarax or Vistaril) 50 mg PO every 6 hours, as needed, for anxiety. - Ibuprofen 600 mg PO every 6 hours, as needed, for pain.
[2017-03-20 17:00] VITALS: BP 118/56
[2017-03-20 20:00] VITALS: BP 118/56
[2017-03-20 22:00] VITALS: BP 118/56
[2017-03-20 22:13] VITALS: BP 134/80
[2017-03-20 23:29] VITALS: BP 134/80
[2017-03-21] VITALS (7 sets, daily range): BP systolic 114–134; BP diastolic 70–80
--- NOTE | 2017-03-21 07:12 | PN- Housestaff ---
SHAKA QUEEN,NIC 03/21/17 0712: Subjective Follow-up For: Heroin overdose with unresponsiveness Acute hypoxic respiratory failure Hypokalemia Tobacco abuse Subjective: Patient seen and examined at bedside this AM. He is sitting up comfortably in bed with sitter at bedside. Psychiatry has cleared him as no longer suicidal and reports sitter can be discontinued. Patient admits to mild headache and moderate back pain, a 5/10 in intensity. He reports these are generally the initial symptoms he gets when he withdrawls. Patient reports he may need to look for new housing as his father owns the apartment building he lives in and is unhappy with Glenn' current situation. Social work consult is appreciated. Review of Systems Constitutional: Denies: chills, fever. EENTM: Denies: visual changes, hearing changes, nasal congestion. Cardiovascular: Denies: chest pain, palpitations. Respiratory: Denies: cough, short of breath. Gastrointestinal: Denies: abdominal pain, nausea, vomiting. Genitourinary: Denies: dysuria. Musculoskeletal: Reports: back pain. Denies: joint pain. Skin: Denies: dryness, rash. Neurological/Psychological: Reports: headache. Denies: anxiety, tremors. Hematologic/Endocrine: Denies: bruising, bleeding. Immunologic/Allergic: Denies: splenectomy. Objective Last 24 Hrs of Vital Signs/I&O Vital Signs Date Time Temp Pulse Resp B/P B/P Pulse O2 O2 Flow FiO2 Mean Ox Delivery Rate 03/21 0813 97 Room Air / 0800 98.1 96 18 114/80 /09 0600 98.1 96 16 114/80 94 Room Air /09 0400 98.3 78 16 120/76 06/09 0207 98.3 78 16 120/76 95 Room Air /09 0200 98.7 105 16 134/80 06/08 2329 98.7 105 16 134/80 06/08 2329 95 Room Air 06/08 2213 98.7 105 16 134/80 95 Room Air 06/08 2200 98.6 91 16 118/56 06/08 2038 Room Air 06/08 2000 98.6 91 16 118/56 06/08 1700 98.6 91 16 118/56 95 Room Air 06/08 1600 97 Room Air /08 1541 98.6 78 19 110/54 95 Room Air Intake & Output 06/09 1600 03/21 0800 03/21 0000 Intake Total 350 Output Total Balance 350 Intake, Oral 350 Patient 260 lb Weight Weight Estimated Measurement Method Physical Exam General Appearance: Alert, Oriented X3, Cooperative, No Acute Distress Skin: No Rashes, No Significant Lesion Skin Temp/Moisture Exam: Warm/Dry HEENT: Atraumatic, PERRLA, EOMI, Mucous Membr. moist/pink Neck: Supple, No JVD Lymphatic: Cervical nl Cardiovascular: Regular Rate, Normal S1, Normal S2 Lungs: Normal Air Movement, Occasional basal rhonchi Abdomen: Normal Bowel Sounds, Soft, No Tenderness Neurological: Normal Gait, Normal Speech, Strength at 5/5 X4 Ext Extremities: No Clubbing, No Cyanosis, No Edema, No Tenderness/Swelling Vascular: Pulses Symmetrical Current Medications: Current Medications Sig/Mey Start time Last Medication Dose Route Stop Time Status Admin Acetaminophen 650 MG Q6P PRN 03/20 1515 AC PO Albuterol Sulfate 3 ML BID 03/20 2200 AC 03/21 INH 0811 Baclofen 10 MG Q6-PRN PRN 03/20 1630 AC PO Clonidine 0.1 MG Q8P PRN 03/20 1630 AC PO Dicyclomine HCl 20 MG Q6-PRN PRN 03/20 1630 AC PO Enoxaparin Sodium 0 .STK-MED ONE 03/20 1612 DC SC Enoxaparin Sodium 40 MG DAILY 03/20 1512 03/20 SC 1609 Hydroxyzine HCl 50 MG Q6-PRN PRN 03/20 1630 AC 03/21 PO 0915 Ibuprofen 600 MG Q6P PRN 03/20 1515 AC 03/21 PO 1334 Lorazepam 2 MG Q2P PRN 03/20 1515 DC IV Lorazepam 1 MG Q2P PRN 03/20 1515 DC IV Methadone HCl 40 MG DAILY 03/21 1000 CAN PO 03/25 0959 Naloxone HCl 0.4 MG Q 5 MINUTES X 3 DO.. 03/20 1515 IV Nicotine 0 .STK-MED ONE 03/20 1611 DC TOP Nicotine 21 MG DAILY 03/20 1513 03/21 TOP 0910 Patient Medication 1 ED .STK-MED ONE 03/21 1411 DC Teaching ED 03/21 1412 Potassium Chloride 60 MEQ ONCE ONE 03/20 1700 DC 03/20 PO 03/20 1701 2008 Last 24 Hrs of Lab/Neto Results Last 24 Hrs of Labs/Mics: Laboratory Tests 03/21/17 0652: Anion Gap 8, Estimated GFR > 60, BUN/Creatinine Ratio 15.0, Creatine Kinase 133, CBC w Diff NO MAN DIFF REQ, RBC 4.55 L, MCV 93.4, MCH 31.5 H, RDW 13.3, MPV 8.9, Gran % 70.1, Lymphocytes % 19.5 L, Monocytes % 7.2, Eosinophils % 2.9, Basophils % 0.3, Absolute Granulocytes 5.3, Absolute Lymphocytes 1.5, Absolute Monocytes 0.5, Absolute Eosinophils 0.2, Absolute Basophils 0, PUBS MCHC 33.8 Assessment/Plan Assessment: Mr. Painting is a 26 year old male with history of heroin use, three heroin overdoses, chronic back pain, ADHD and anxiety who presents after being found unresponsive by his girlfriend at 10 PM. Glenn has been intermittently using heroin for three years but has been clean for the last one month; he relapsed yesterday morning, using 4 bags in the AM and 4 bags around 10 PM. He subsequently was noted to have agonal respirations and be unresponsive at 10:15 PM which time EMS were called. He received both intranasal and IV narcan in the field with good response. In the ED: Vital signs showed T 96.0, HR 102, RR 18, BP 130/76 and O2 saturation 86-100% on room air transitioned to 2 L NC. Labs were significant for: WBC 12.7 with 81% granulocytes, H&H 13.4/39.6, Plt 250, K 3.1, BUN/cre 17/0.8, Glu 164, CK 272, trop <0.01, and UTox significant for opiates >4,000. CXR was done and showed no acute pulmonary findings. CTA showed no PE and showed indeterminate subcentimeter groundglass opacities in the lower lobes. EKG showed NSR with first degree AV block, HR 99, AR 216. 1. Unresponsiveness secondary to heroin overdose * Patient s/p narcan in the field with good response; UTox positive for opiates >4000 * Narcan 0.4 mg IV Q5 minutes x 3 doses for respiratory depression or SAS <2 * Continuous observation monitor has been discontinued per psych recommendations * Will continue clonidine 0.1 mg PO Q8P for opiate withdrawl sxs, baclofen 10 mg PO Q6P for muscle cramps, bentyl 20 mg PO Q6 for GI cramps, hydroxyzine 50 mg PO Q6P for anxiety and ibuprofen 600 mg Q6P pain * Continue CIWA scoring * Cannot leave AMA for now * Will likely require intensive outpatient psychiatry and will discuss with social work about disposition * Consider narcan IN for use in the community 2. Acute hypoxic respiratory failure * Patient noted to desaturate to 86% on room air, possibly secondary to decreased respiratory drive * Patient improved on nasal cannula and is now saturating well on room ait * TR nebs * As initial CT showed ground glass opacities, will consider follow up imaging * Continue to watch off antibiotics for now 3. Tobacco abuse * Tobacco cessation counseling provided * Nicotine patch daily 4. Hypokalemia * K 3.1 on admission, given 60 meq Kdur * K stable this AM at 4.1 * Follow BEP intermittently 5. Leukocytosis * On admission WBC 12.7, likely reactive in the setting of acute stress from overdose * WBC count has normalized this AM to 7.6 * Monitor for fevers, worsening leukocytosis * If no improvement or clinically appears worse, consider blood cultures and treatment for possible bronchitis or ?aspiration FULL CODE DVTP: SC Lovenox Regular diet Mild to moderate pain pathway Problem List: 1. Heroin overdose 2. Opioid overdose 3. Chronic back pain Pain Ratin Pain Location: Low back Pain Goal: Pain 4 or less Pain Plan: Baclofen PRN muscle cramps, tylenol, motrin Tomorrow's Labs & Rationales: None. CYRIL QUEEN,LUIS 03/21/17 1139: Attending MD Review Statement Attending Statement Attending MD Statement: examined this patient, discuss w/resident/PA/POLICY MANAGER, agreed w/resident/PA/POLICY MANAGER, reviewed EMR data (avail), discussed with nursing, discussed with case mgmt, reviewed images, amended to note Attending Assessment/Plan: Patient seen and examined, he is now complaining of some abdominal pain as well as feeling some anxiety and nausea. Patient's father did not want him to come home. Vital Signs Date Time Temp Pulse Resp B/P B/P Pulse O2 O2 Flow FiO2 Mean Ox Delivery Rate 03/21 0813 97 Room Air 06/09 0800 98.1 96 18 114/80 06/09 0600 98.1 96 16 114/80 94 Room Air 06/09 0400 98.3 78 16 120/76 06/09 0207 98.3 78 16 120/76 95 Room Air 06/09 0200 98.7 105 16 134/80 06/08 2329 98.7 105 16 134/80 06/08 2329 95 Room Air 06/08 2213 98.7 105 16 134/80 95 Room Air 06/08 2200 98.6 91 16 118/56 06/08 2038 Room Air 06/08 2000 98.6 91 16 118/56 06/08 1700 98.6 91 16 118/56 95 Room Air 06/08 1600 97 Room Air 06/08 1541 98.6 78 19 110/54 95 Room Air 06/08 1412 98.2 86 20 118/72 96 Room Air on exam; aox3, nad. cv; s1,s2, rrr resp; clear abd: soft, nt, bs+ ext; no edema. Laboratory Tests 03/21 652 Chemistry Sodium (137 - 145 mmol/L) 138 Potassium (3.5 - 5.1 mmol/L) 4.1 Chloride (98 - 107 mmol/L) 104 Carbon Dioxide (22 - 30 mmol/L) 26 Anion Gap (5 - 16) 8 BUN (9 - 20 mg/dL) 12 Creatinine (0.7 - 1.2 mg/dL) 0.8 Estimated GFR (>60 ml/min) > 60 BUN/Creatinine Ratio (7 - 25 %) 15.0 Creatine Kinase (55 - 170 U/L) 133 Hematology CBC w Diff NO MAN DIFF REQ WBC (4.8 - 10.8 /CUMM) 7.6 RBC (4.70 - 6.10 /CUMM) 4.55 L Hgb (14.0 - 18.0 G/DL) 14.4 Hct (42 - 52 %) 42.5 MCV (80.0 - 94.0 FL) 93.4 MCH (27.0 - 31.0 PG) 31.5 H RDW (11.5 - 14.5 %) 13.3 Plt Count (130 - 400 /CUMM) 270 MPV (7.4 - 10.4 FL) 8.9 Gran % (42.2 - 75.2 %) 70.1 Lymphocytes % (20.5 - 51.1 %) 19.5 L Monocytes % (1.7 - 9.3 %) 7.2 Eosinophils % (0 - 5 %) 2.9 Basophils % (0.0 - 2.0 %) 0.3 Absolute Granulocytes (1.4 - 6.5 /CUMM) 5.3 Absolute Lymphocytes (1.2 - 3.4 /CUMM) 1.5 Absolute Monocytes (0.10 - 0.60 /CUMM) 0.5 Absolute Eosinophils (0.0 - 0.7 /CUMM) 0.2 Absolute Basophils (0.0 - 0.2 /CUMM) 0 PUBS MCHC (33.0 - 37.0 G/DL) 33.8 A/P; 26-year-old male with history significant for opiate use, ADHD who is admitted with opiate overdose. Patient denies suicidal ideation. Denies any use of alcohol concurrently or any other drug use. This morning patient's one-to-one sitter was discontinued. He is ordered symptomatically treatment for possible opiate withdrawal, if he is having symptoms of withdrawal dose should be used. Unfortunately patient now does not have a place to go as his parents did not want him to come home. We will get social professionals's help in finding a plan for his discharge. Patient on albuterol for wheezing. Psych recommends prescribing intranasal Narcan for outpatient use in the community. DVT px; Lovenox.
[2017-03-21 08:28] LABS: ABSOLUTE BASOPHIL COUNT 0 /CUMM (0.0-0.2); ABSOLUTE EOSINOPHIL COUNT 0.2 /CUMM (0.0-0.7); ABSOLUTE GRANULOCYTE CT 5.3 /CUMM (1.4-6.5); ABSOLUTE LYMPH COUNT 1.5 /CUMM (1.2-3.4); ABSOLUTE MONOCYTE COUNT 0.5 /CUMM (0.10-0.60); BASOPHIL % 0.3 % (0.0-2.0); EOSINOPHIL % 2.9 % (0-5); GRANULOCYTE % 70.1 % (42.2-75.2); HEMATOCRIT 42.5 % (42-52); MEAN CORPUSCULAR HGB 31.5 PG (27.0-31.0); MEAN CORPUSCULAR HGB CONC 33.8 G/DL (33.0-37.0); MEAN CORPUSCULAR VOLUME 93.4 FL (80.0-94.0); MEAN PLATELET VOLUME 8.9 FL (7.4-10.4); PLATELET COUNT 270 /CUMM (130-400); RBC DISTRIBUTION WIDTH 13.3 % (11.5-14.5); RED BLOOD CELL CT 4.55 /CUMM (4.70-6.10); WHITE BLOOD CELL COUNT 7.6 /CUMM (4.8-10.8)
--- NOTE | 2017-03-21 09:34 | PN- Psychiatry ---
Assessment/Plan Impression: Identifying Info: 26-year-old single male known to this service presents status post accidental opiate overdose. This is his third overdose within the past 2 months. SUBJECTIVE "I'm good... happy to be breathing." Patient denies any complaints this morning. He is concerned regarding his job, advised to call work to tell them that they he would likely either be late or absent. He is agreeable to IOP level of care or residential care however one informed that he would likely be homeless if he chose an outpatient level of care states he would prefer residential. Expresses desire to be sober. Discussed the possibility of having Narcan at home. Spoke to the patient's father who reports that the patient has made suicidal comments in the past including text stating provocative statements to a significant other. There was no specific suicidal threats prior to this accidental overdose. He states the patient locks himself in an abandoned apartment and does heroin. Discussed with him possibilities for substance treatment for his son. He stated that he would not have a place to live if he were discharged to intensive outpatient treatment, would therefore need referral to a homeless prison and she recommended the one in [place].. His support system has become fatigued due to this patient's substance abuse and does not feel anyone or have a place for him to live including his significant other. Does report that he has a good job which is a stabilizing influence. Brief ROS Gait: Not observed Sleep: Adequate Appetite: Adequate OBJECTIVE Mental Status Exam Presentation/Appearance: Cooperative with evaluation. [facility]. Orientation: x4 Sensorium: Awake and alert Eye contact: Appropriate Affect: Somewhat blunted Mood: "good" denies depression or anxiety Thought Content: - Denies SI/HI, AH/VH, PI. States and also believes they will not kill themselves. Thought Process: Linear Associations: Appropriate Speech: Normal tone and rate Judgment: Fair Insight: Fair Cognition: Memory: Grossly intact Attention/Concentration: Grossly intact Fund of Knowledge: Adequate MMSE: Patient's scores 29 out of 30 on 6/8 ASSESSMENT 26-year-old single male with multiple recent accidental overdoses and he would benefit from continued substance abuse treatment either on an intensive outpatient or residential basis. At present he expresses desire to be sober however given his pattern of relapse remission with significant overdose he is at high risk of accidental due to substance use. Diagnosis Opiate use disorder severe Rule out unspecified depressive disorder versus substance-induced depressive disorder A total of 45 minutes was spent with the patient with more than 50% of the time spent in counseling and/or coordination of care. Suggestion: 1. Please discontinue sitter as patient is not a threat to self and is not an elopement risk. 2. Appreciate social work referral for assistance in disposition planning for residential treatment versus [facility] level of care and homeless prison. 3. If patient is discharged to [facility] level of care it would be prudent to prescribe intranasal Narcan for use in the community. Thank you for including psychiatry in this case we will continue to follow on an as-needed basis. Subjective Subjective: as above Objective Last 24 Hrs of Vital Signs/I&O Current Medications Sig/Mey Start time Last Medication Dose Route Stop Time Status Admin Acetaminophen 650 MG Q6P PRN 03/20 1515 AC PO Albuterol Sulfate 3 ML BID 03/20 2200 AC 03/21 INH 0811 Baclofen 10 MG Q6-PRN PRN 03/20 1630 AC PO Clonidine 0.1 MG Q8P PRN 03/20 1630 AC PO Dicyclomine HCl 20 MG Q6-PRN PRN 03/20 1630 AC PO Enoxaparin Sodium 0 .STK-MED ONE 03/20 1612 DC SC Enoxaparin Sodium 40 MG DAILY 03/20 1512 AC 03/20 SC 1609 Hydroxyzine HCl 50 MG Q6-PRN PRN 03/20 1630 AC 03/21 PO 0915 Ibuprofen 600 MG Q6P PRN 03/20 1515 AC PO Lorazepam 2 MG Q2P PRN 03/20 1515 DC IV Lorazepam 1 MG Q2P PRN 03/20 1515 DC IV Methadone HCl 40 MG DAILY 03/21 1000 CAN PO 03/25 0959 Naloxone HCl 0.4 MG Q 5 MINUTES X 3 DO.. 03/20 1515 AC IV Naloxone HCl 0.8 MG ONCE ONE 03/20 1200 DC IV 03/20 1201 Naloxone HCl 0 .STK-MED ONE 03/20 1159 DC .ROUTE Naloxone HCl 0.4 MG ONCE ONE 03/20 1145 DC 08 IV 03/20 1146 1157 Nicotine 0 .STK-MED ONE 03/20 1611 DC TOP Nicotine 21 MG DAILY 03/20 1513 AC 03/21 TOP 0910 Potassium Chloride 60 MEQ ONCE ONE 03/20 1700 DC 03/20 PO 03/20 Laboratory Tests 03/21/17 0652: Anion Gap 8, Estimated GFR > 60, BUN/Creatinine Ratio 15.0, Creatine Kinase 133, CBC w Diff NO MAN DIFF REQ, RBC 4.55 L, MCV 93.4, MCH 31.5 H, RDW 13.3, MPV 8.9, Gran % 70.1, Lymphocytes % 19.5 L, Monocytes % 7.2, Eosinophils % 2.9, Basophils % 0.3, Absolute Granulocytes 5.3, Absolute Lymphocytes 1.5, Absolute Monocytes 0.5, Absolute Eosinophils 0.2, Absolute Basophils 0, PUBS MCHC 33.8 Vital Signs Date Time Temp Pulse Resp B/P B/P Pulse O2 O2 Flow FiO2 Mean Ox Delivery Rate 03/21 0813 97 Room Air 03/21 0600 98.1 96 16 114/80 94 Room Air / 0400 98.3 78 16 120/76 /09 0207 98.3 78 16 120/76 95 Room Air /09 0200 98.7 105 16 134/80 06/08 2329 98.7 105 16 134/80 06/08 2329 95 Room Air 06/08 2213 98.7 105 16 134/80 95 Room Air 06/08 2200 98.6 91 16 118/56 /08 2038 Room Air /08 2000 98.6 91 16 118/56 06/08 1700 98.6 91 16 118/56 95 Room Air /08 1600 97 Room Air /08 1541 98.6 78 19 110/54 95 Room Air /08 1412 98.2 86 20 118/72 96 Room Air 06/08 1138 98.0 82 20 110/56 87 Room Air /08 1022 97.1 76 20 123/66 98 Nasal 2.0L Cannula Intake & Output 03/21 1600 03/21 0800 03/21 0000 Intake Total 350 Output Total Balance 350 Intake, Oral 350 Patient 260 lb Weight Weight Estimated Measurement Method
--- NOTE | 2017-03-21 15:21 | Patient Discharge Instructions ---
Discharge Instructions General Discharge Information You were seen/treated for: Heroin overdose Unresponsiveness Special Instructions: Please follow up with the PCP we have reffered you to or follow up with PCP of your choosing within 7 days of discharge. Please follow up with your IOP and follow up with your psychiatrist within 7 days of discharge. Please take naloxone if overdose suspected. Diet Recommended Diet: Regular Activity Activity Self Limited: Yes Acute Coronary Syndrome Inclusion Criteria At DC or during hospital stay patient has or had the following: ACS DIAGNOSIS No Discharge Core Measures Meds if any: Prescribed or Continued at Discharge Meds if any: NOT Prescribed or Continued at Discharge Congestive Heart Failure Inclusion Criteria At DC or during hospital stay patient has or had the following: CHF DIAGNOSIS No Discharge Core Measures Meds if any: Prescribed or Continued at Discharge Meds if any: NOT Prescribed or Continued at Discharge Cerebrovascular accident Inclusion Criteria At DC or during hospital stay patient has or had the following: CVA/TIA Diagnosis No Discharge Core Measures Meds if any: Prescribed or Continued at Discharge Meds if any: NOT Prescribed or Continued at Discharge Venous thromboembolism Inclusion Criteria VTE Diagnosis No VTE Type NONE VTE Confirmed by (Test) NONE Discharge Core Measures - Per Current guidelines, there needs to be overlap - treatment for the first 5 days of Warfarin therapy. - If discharged on Warfarin prior to 5 days of - overlap therapy, the patient will need to be - assessed for post discharge needs including - *Post discharge parental anticoagulation - *Warfarin and/or parental anticoagulation education - *Follow up date to check INR post discharge At least 5 days overlap therapy as Inpatient No Meds if any: Prescribed or Continued at Discharge Note: Overlap Therapy is Warfarin and Anticoagulant Meds if any: NOT Prescribed or Continued at Discharge
[2017-03-21] MEDS ORDERED: NARCAN4 MG IH (15:26)
[2017-03-22 02:00] VITALS: BP 130/80
[2017-03-22 07:39] VITALS: BP 112/78
[2017-03-22 08:00] VITALS: BP 112/78
--- NOTE | 2017-03-22 08:30 | PN- Housestaff ---
Subjective Follow-up For: Heroin overdose with unresponsiveness Acute hypoxic respiratory failure Hypokalemia Tobacco abuse Subjective: Patient was seen and examined this morning, like comfortably in bed, overnight he had bad withdrawal symptoms mainly agitation and anxiety CIWA 20, this morning CIWA is 0. Patient supposed to be discharged to [facility] rehabilitation [facility]" this morning. I spoke with the disability case manager Nanci to confirm that and according to the notes from yesterday everything was arranged for his discharge. Review of Systems Constitutional: Reports: see HPI. Objective Last 24 Hrs of Vital Signs/I&O Vital Signs Date Time Temp Pulse Resp B/P B/P Pulse O2 O2 Flow FiO2 Mean Ox Delivery Rate 03/22 0739 97.6 86 20 112/78 97 Room Air 03/22 0200 98.9 100 20 130/80 03/22 0120 100 130/80 03/21 2241 99.1 100 20 122/70 99 Room Air 03/21 1935 98 Room Air Room Air 03/21 1437 98.3 99 18 130/70 99 Room Air Intake & Output 03/22 1600 03/22 0800 03/22 0000 Intake Total 400 500 Output Total Balance 400 500 Intake, Oral 400 500 Physical Exam General Appearance: Alert, Oriented X3, Cooperative, No Acute Distress HEENT: Atraumatic, PERRLA, EOMI, Mucous Membr. moist/pink Neck: Supple, No JVD Cardiovascular: Regular Rate, Normal S1, Normal S2, No Murmurs Lungs: Clear to Auscultation, Normal Air Movement Abdomen: Normal Bowel Sounds, Soft, No Tenderness, No Hepatospenomegaly, No Masses Neurological: Normal Gait, Normal Speech, Strength at 5/5 X4 Ext, Normal Tone, Sensation Intact, Cranial Nerves 3-12 NL, Reflexes 2+ Extremities: No Clubbing, No Cyanosis, No Edema, Normal Pulses, No Tenderness/ Swelling Assessment/Plan Assessment: Mr. Painting is a 26 year old male with history of heroin use, three heroin overdoses, chronic back pain, ADHD and anxiety who presents after being found unresponsive by his girlfriend at 10 PM. Glenn has been intermittently using heroin for three years but has been clean for the last one month; he relapsed yesterday morning, using 4 bags in the AM and 4 bags around 10 PM. He subsequently was noted to have agonal respirations and be unresponsive at 10:15 PM which time EMS were called. He received both intranasal and IV narcan in the field with good response. In the ED: Vital signs showed T 96.0, HR 102, RR 18, BP 130/76 and O2 saturation 86-100% on room air transitioned to 2 L NC. Labs were significant for: WBC 12.7 with 81% granulocytes, H&H 13.4/39.6, Plt 250, K 3.1, BUN/cre 17/0.8, Glu 164, CK 272, trop <0.01, and UTox significant for opiates >4,000. CXR was done and showed no acute pulmonary findings. CTA showed no PE and showed indeterminate subcentimeter groundglass opacities in the lower lobes. EKG showed NSR with first degree AV block, HR 99, NM 216. Patient is for discharge today to [facility] 1. Unresponsiveness secondary to heroin overdose * Patient s/p narcan in the field with good response; UTox positive for opiates >4000 * Narcan 0.4 mg IV Q5 minutes x 3 doses for respiratory depression or SAS <2 * Continuous observation monitor has been discontinued per psych recommendations * Will continue clonidine 0.1 mg PO Q8P for opiate withdrawl sxs, baclofen 10 mg PO Q6P for muscle cramps, bentyl 20 mg PO Q6 for GI cramps, hydroxyzine 50 mg PO Q6P for anxiety and ibuprofen 600 mg Q6P pain * Continue CIWA scoring * Cannot leave AMA for now * Will likely require intensive outpatient psychiatry and will discuss with social work about disposition * Consider narcan IN for use in the community 2. Acute hypoxic respiratory failure * Patient noted to desaturate to 86% on room air, possibly secondary to decreased respiratory drive * Patient improved on nasal cannula and is now saturating well on room ait * [facility] nebs * As initial CT showed ground glass opacities, will consider follow up imaging * Continue to watch off antibiotics for now 3. Tobacco abuse * Tobacco cessation counseling provided * Nicotine patch daily 4. Hypokalemia * K 3.1 on admission, given 60 meq Kdur * K stable this AM at 4.1 * Follow BEP intermittently 5. Leukocytosis * On admission WBC 12.7, likely reactive in the setting of acute stress from overdose * WBC count has normalized this AM to 7.6 * Monitor for fevers, worsening leukocytosis * If no improvement or clinically appears worse, consider blood cultures and treatment for possible bronchitis or ?aspiration FULL CODE DVTP: SC Lovenox Regular diet Mild to moderate pain pathway Problem List: 1. Drug overdose Pain Ratin Pain Location: None Pain Goal: Pain 4 or less Pain Plan: Mild pain pathway Tomorrow's Labs & Rationales: NONE
--- NOTE | 2017-03-22 16:03 | Discharge Summary ---
Visit Information Visit Dates Admission Date: 03/20/17 Discharge Date: 03/22/17 Hospital Course Course Attending Physician: LUIS NAM MD Primary Care Physician: PATIENT HAS NO PRIMARY CARE DR Consulting Request: Consulting Specialty: Psychiatry Consulting Physician: Qasim Rojas APRN Reason for Consult: Overdose Hospital Course: Mr. Painting is a 26 year old male with history of heroin use, three heroin overdoses, chronic back pain, ADHD and anxiety who presents after being found unresponsive by his girlfriend at 10 PM. Glenn has been intermittently using heroin for three years but has been clean for the last one month; he relapsed yesterday morning, using 4 bags in the AM and 4 bags around 10 PM. He subsequently was noted to have agonal respirations and be unresponsive at 10:15 PM at which time EMS was called. He received both intranasal and IV narcan in the field with good response. In the ED: Vital signs showed T 96.0, HR 102, RR 18, BP 130/76 and O2 saturation 86-100% on room air transitioned to 2 L NC. Labs were significant for: WBC 12.7 with 81% granulocytes, H&H 13.4/39.6, Plt 250, K 3.1, BUN/cre 17/0.8, Glu 164, CK 272, trop <0.01, and UTox significant for opiates >4,000. CXR was done and showed no acute pulmonary findings. CTA showed no PE and showed indeterminate subcentimeter groundglass opacities in the lower lobes. EKG showed NSR with first degree AV block, HR 99, UT 216. Patient was admitted to the general medicine floor and the following was the management: 1. Unresponsiveness secondary to heroin overdose: Patient received narcan in the field with good response. On admission, his urine tox screen was positive for opiated. Therefore, narcan 0.4 mg IV Q5 minutes x 3 doses for respiratory depression or SAS <2 was ordered as needed. Patient had a continuous observation monitor throughout his first night due to concerns for suicidal ideation (family members suggested patient may have overdosed with the though of harming himself) . Psychiatry initiated the following symptomatic management for withdrawl along with initiation of CIWA scoring: clonidine 0.1 mg PO Q8P for opiate withdrawl sxs, baclofen 10 mg PO Q6P for muscle cramps, bentyl 20 mg PO Q6 for GI cramps, hydroxyzine 50 mg PO Q6P for anxiety and ibuprofen 600 mg Q6P pain. The following morning, psychiatry reevaluated Glenn and he contracted for safety, therefore the sitter was discontinued. CIWA scoring was continued with improving scores noted. Patient was stable for discharge on 03/22/17 and was discharge to [facility] for further care. He was given a prescription for intranasal narcan for use in the community. 2. Hypoxia: Patient noted to desaturate to 86% on room air, possibly secondary to decreased respiratory drive. He was given supplemental O2 initially but his respiratory status quickly improved and he was able to maintain appropriate O2 saturation on room air. Of note, patient had CTA on admission that showed ground glass opacities (imaging description below). We have reffered Glenn to a new PCP Dr. Miranda MD; we suggest PCP follow up on these imaging findings and consider pulmonary consultation as an outpatient. 3.Tobacco abuse: Tobacco cessation counseling provided. Nicotine patch provided daily. 4. Hypokalemia: K 3.1 on admission, given 60 meq Kdur PO. Subsequent K level within normal limits and no futher supplementation necessary. 5. Leukocytosis: On admission WBC 12.7, likely reactive in the setting of acute stress from overdose. Follow up WBC count normalized to 7.6. No fevers were appreciated and no signs of infection noted. Patient required no antibiotics during this admission. 6. Code: FULL 7. DVT Prophylaxis: SC Lovenox 8. Diet: Regular Complications: None. Allergies: Coded Allergies: NO KNOWN ALLERGIES (02/22/11) Significant Procedures: CXR: FINDINGS: Cardiac leads overlie the chest. The lungs are well expanded. There is no focal consolidation, edema, or effusion. No pneumothorax. The cardiomediastinal silhouette is within normal limits. No acute osseous abnormality. IMPRESSION: No acute pulmonary findings. CTA: IMPRESSION: 1. No evidence of pulmonary embolism. 2. Indeterminate subcentimeter groundglass opacities, most notably in the lower lobes, will need followup along with clinical correlation, as noted above. VTE: Negative exam for pulmonary embolism. Disposition Summary Disposition Principal Diagnosis: Unresponsiveness due to heroine overdose Additional Diagnosis: Tobacco abuse Hypokalemia Reactive leukocytosis Discharge Disposition: home or self care Discharge Instructions General Discharge Information Code Status: Full Code Patient's Diet: Regular diet. Patient's Activity: Self-limited, as tolerated. Follow-Up Instructions/Appts: Please follow up with the PCP we have reffered you to or follow up with PCP of your choosing within 7 days of discharge. Please follow up with your IOP and follow up with your psychiatrist within 7 days of discharge. Please take naloxone if overdose suspected. Medications at Discharge Discharge Medications: Stop taking the following medications: Buprenorphine HCl/Naloxone HCl (Suboxone 8 MG-2 MG Sl Film) 8 MG-2 MG FILM SUBLINGUAL DAILY Continue taking these medications: Hydroxyzine HCl (Hydroxyzine HCl) 50 MG TABLET 50 Milligram ORAL EVERY SIX HOURS NEEDED as needed for ANXIETY Days = 28 Comments: Last Taken: 03/21/17 Time: 10 PM Ondansetron (Zofran Odt) 4 MG TAB.RAPDIS 1 Tablet SUBLINGUAL THREE TIMES DAILY Qty = 20 Comments: Last Taken:03/20/17 Time:0330 Start taking the following new medications: Naloxone HCl (Narcan) 4 MG/ACTUATION SPRAY 4 Milligram INHALATION GIVE ONCE as needed for OVERDOSE Qty = 1 No Refills Comments: Last Taken:NOT GIVEN IN HOSPITAL Time: Copies To: MIRANDA QUEEN,BAILEY Attending MD Review Statement Documenting Attending: LUIS NAM MD
== END 2017-03-22 12:21 | DRG 917 ==
LOC: ERH 03:03 → ERHI 14:23 → 2NA 14:23 → ENRESERV 14:45 → ENTRNSPT 16:14 → 2NA 17:09 → CMPTRNSPT 17:58 → ENPENDDIS 03-22 11:28 → 2NA 03-22 12:21
PROVIDERS: Pediatrics; Student in an Organized Health Care Education/Training Program; ADMIT Hospitalist
DX: T40.1X1A Poisoning by heroin, accidental (unintentional), initial encounter (principal); J96.01 Acute respiratory failure with hypoxia; Y92.9 Unspecified place or not applicable; F90.9 Attention-deficit hyperactivity disorder, unspecified type; F17.200 Nicotine dependence, unspecified, uncomplicated; E87.6 Hypokalemia
CPT/HCPCS: 2NAP; 36415; 80307; 82436; 93005; 93010; 96374; G0463; G0480; J1650; J2310; J2405

== ENCOUNTER 2017-10-22 15:02 | Emergency (ER) | payer OTHER ==
[~2017-10-22] VITALS: Ht 177.8 cm; Wt 117.9 kg
[~2017-10-22 15:02] MED LIST changes: +CLONIDINE HCL0.1 MG PO; +HYDROXYZINE PAM50 M1 PO; +MELATONIN10 M2 PO; +NARCAN4 MG IH; +NARCAN4 MG IN
[2017-10-22 15:16] VITALS: BP 121/76
[2017-10-22] MEDS ORDERED: ACULAR5 ML OPH (16:39)
[2017-10-22] MEDS ORDERED: POLYTRIM EYE DR10 ML OPH (16:39)
--- NOTE | 2017-10-22 16:40 | ED EYE COMPLAINT ---
History of Present Illness General Chief Complaint: Eye Problems Stated Complaint: PIECE OF METAL IN LEFT EYE S/P WORK INJURY Source: patient, old records Exam Limitations: no limitations Vital Signs & Intake/Output Vital Signs & Intake/Output Vital Signs Date Time Temp Pulse Resp B/P B/P Pulse O2 O2 Flow FiO2 Mean Ox Delivery Rate 10/22 1516 97.1 90 18 121/76 97 Room Air Allergies Coded Allergies: NO KNOWN ALLERGIES (02/22/11) Reconcile Medications Clonidine HCl 0.1 MG TABLET 1 TAB PO QPM PRN SLEEP (Reported) Hydroxyzine Pamoate 50 MG CAPSULE 1 CAP PO QPM PRN SLEEP (Reported) Ketorolac Tromethamine (Acular) 0.5 % DROPS 1 GTT OPH 4 TIMES/DAY corneal abrasion Melatonin 10 MG TABLET 1 TAB PO QPM SLEEP (Reported) Polytrim (Polytrim Eye Drops) 10,000 UNIT-1 MG/ML DROPS 1 GTT OPH Q6 corneal abrasion Triage Note: PT TO ER C/C LEFT EYE PAIN AND BLURRED VISION AFTER GETTING METAL IN EYE AT 1430, ATTEMPTED TO FLUSH EYE AT HOME WITH GREAT PAIN. Triage Nurses Notes Reviewed? yes Onset: Abrupt Duration: hour(s): (1), constant Timing: recent history Injury Environment: work Severity: moderate, severe Severity Numbers: 10 No Modifying Factors: none Left Eye Associated Symptoms: burning, itching, pain, foreign body sensation Right Eye Associated Symptoms: denies HPI: 27-year-old male presents to ER complaining of left eye foreign body sensation burning aching pain and tearing after he states while attempting to tire off of acar at work piece of metal struck him in the eye. He attempted to flush his eyes out without success at home. He denies any vision loss however states his vision is been blurry. He denies any other symptoms. he was not wearing safety goggles. He denies glasses or contact lens use. (Reymundo GARCIA,Chano) Past History Travel History Traveled to [place] past 21 day No Medical History Any Pertinent Medical History? see below for history Neurological: NONE EENT: NONE Cardiovascular: NONE Respiratory: NONE Gastrointestinal: NONE Hepatic: NONE Renal: NONE Musculoskeletal: chronic back pain, chronic skin rash Psychiatric: anxiety, HEROIN ABUSE Endocrine: NONE Blood Disorders: NONE Cancer(s): NONE [employer]/Reproductive: NONE History of MRSA: No History of VRE: No History of CDIFF: No Tetanus Vaccine: Surgical History Surgical History: non-contributory Psychosocial History Who do you live with Family Services at Home None What is your primary language Persian Tobacco Use: Current Daily Use Daily Tobacco Use Amount/Type: => 5 Cigarettes daily Family History Family History, If Any: Relation not specified for: *No pertinent family history Hx Contributory? No (Chano Jean-Baptiste) Review of Systems Review of Systems Constitutional: Reports: see HPI. All Other Systems: Reviewed and Negative Comments Review of systems: See HPI, All other systems negative. Constitutional, no chills no fever, HEENT: no sore throat Cardiovascular: No chest pain Skin: no rashes, no change in skin Respiratory: No dyspnea no cough Muscle skeletal: No joint pain, no back pain Neurologic: , no headache Heme/endocrine: No bruising (Chano Jean-Baptiste) Physical Exam General Appearance: well developed/nourished, no apparent distress, alert General Inspection: normal inspection Eyelid: normal inspection, everted for exam Conjunctiva/Sclera: normal inspection Cornea: examined w/fluorescein, abrasion EOM: intact Pupil: normal accommodation, normal pupil, PERRL General Inspection: normal inspection Eyelid: normal inspection Conjunctiva/Sclera: normal inspection Cornea: normal inspection EOM: intact Pupil: normal accommodation, normal pupil, PERRL Physical Exam Comments: Well-developed well-nourished patient in no apparent distress. HEENT: Atraumatic, extraocular motion intact Neck: Supple, FROM Back: FROM Respiratory: No respiratory distress. Patient speaking in full complete sentences. Extremities: full range of motion Neuro: awake, alert, and oriented to person, place and time. There were no obvious focal neurologic abnormalities. Skin: Warm & dry;No appreciable rash on exposed skin Psych: Mood affect normal, normal memory normal judgment. (Chano Jean-Baptiste) Progress Differential Diagnosis: corneal abrasion, corneal foreign body, conjunctivitis, globe rupture Plan of Care: The eye was examined after anesthetization with tetracaine with good relief of symptoms. A large corneal abrasion was noted to the left eye. The eyelids were everted a Q-tip was 100 there was no rust ring there is no visualized foreign body to the eye or under the eyelids. I discussed with the patient however the possibility of foreign body not seen on examination still exists and I strongly advised that he follow up with protection chief [employer] Dr. keys tomorrow for reevalatuion. We will send him home with Polytrim and Acular eyedrops. Return precautions were discussed at length. He feels comfortable with plan cleared for discharge (Chano Jean-Baptiste) Departure Departure Time of Disposition: 1636 Disposition: HOME OR SELF CARE Condition: Stable Clinical Impression Primary Impression: Corneal abrasion Referrals: Patient Has No Primary Care Dr (PCP/Family) Owen QUEEN,Mike Boss Additional Instructions: acular eye drops for pain, polytrim eye drops for prophylaxis. cool compreses, ice packs as needed. follow up with [employer] dr keys tomorrow. As discussed the possibility of foreign body not seen on examination still exists. Return anytime sooner with any concerns. Departure Forms: Customer Survey General Discharge Information Prescriptions: Current Visit Scripts Polytrim (Polytrim Eye Drops) 1 GTT OPH Q6 #10 ML Ketorolac Tromethamine (Acular) 1 GTT OPH 4 TIMES/DAY #5 ML (Chano Jean-Baptiste) PA/[employer] Co-Sign Statement Statement: ED Attending supervision documentation- [] I saw and evaluated the patient. I have also reviewed all the pertinent lab results and diagnostic results. I agree with the findings and the plan of care as documented in the PA's/[employer]'s documentation. [X] I have reviewed the ED Record and agree with the PA's/[employer]'s documentation. [] Additions or exceptions (if any) to the PAs/[employer]'s note and plan are summarized below: [] (Major QUEEN,Shu)
== END 2017-10-22 16:30 ==
LOC: ERH 15:02
DX: S05.02XA Injury of conjunctiva and corneal abrasion without foreign body, left eye, initial encounter (principal); W22.8XXA Striking against or struck by other objects, initial encounter; Y93.89 Activity, other specified; Y92.9 Unspecified place or not applicable